=== PATIENT | female | born 1975 | race Two or more races ===

== ENCOUNTER 2016-07-24 12:46 | Emergency (ER) | payer OTHER ==
--- NOTE | 2016-07-24 14:26 | UCPHY ---
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 She is able to bear weight albeit with pain. 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 No paresthesia. No discoloration beyond localized ecchymosis. No history of thromboembolic disorder. PHYSICAL EXAM (Prior to examination, patient consented to physical exam, hands were washed and my usual and customary physical exam procedures followed) 1) GENERAL: Well-developed, well-nourished, alert and oriented. Appears to be in no acute distress. 2) HEAD: Normocephalic 3) HEENT: Pupils equal, round, reactive to light bilaterally. 4) LUNGS: Breathing comfortably. 5) MUSCULOSKELETAL: Tender to palpation with ecchymotic discoloration distal right pretibial region. Compartments are soft. proximal tibia and fibula nontender .5th MT nontender negative Hernandez test, compartments soft. Dorsiflexion plantar flexion distally do not elicit pain proximally. 6) SKIN: intact. Ecchymotic discoloration 7) VASCULAR: DP,PT pulses and cap refill present and brisk DIFFERENTIAL DIAGNOSIS: in no particular order including but not limited to fracture, sprain, compartment syndrome Xray of the right ankle interpreted by myself: no definitive acute osseous abnormality Procedure: Splint A Wynne boot splint was applied by ER machine maintenance technician. After application of the splint I returned and re-examined the patient. The splint was adequately immobilizing the joint and distal to the splint the patient's circulation and sensation were intact. Patient shows no signs of compartment syndrome. Was given orthopedic precautions. (Brad Arredondo) Constitutional: Initial Vital Signs Temperature (C) 36.9 C 07/24/16 14:22 Heart Rate 64 07/24/16 14:22 Respiratory Rate 18 07/24/16 14:22 Blood Pressure 133/82 H 07/24/16 14:22 O2 Sat (%) 100 07/24/16 14:22 O2 Delivery Mode Room Air Allergies/Adverse Reactions: No Known Allergies Allergy (Unverified 07/24/16 14:20) Home Medications: Medication Instructions Recorded NK [No Known Home Meds] 07/24/16 MDM/Departure - [facility] ED Course/Re-evaluation: doubt compartment syndrome as the patient has soft compartments, no pain with passive or active range of motion distally, no paresthesia, no discoloration, she is neurovascular intact distally. No definitive acute osseous abnormality. Discussed possibility of occult fracture. She has been splinted and given orthopedic follow-up information. Usual and customary orthopedic precautions and instructions provided (Brad Arredondo) Urgent Care PA supervision Physician documentation: The patient was evaluated and managed by the physician marketing assistant. My co- signature indicates that I have reviewed this chart and I agree with the findings and plan of care as documented. I am is secondary supervising physician. (Carlin Hernandez) - Depart Disposition: Home, Routine, Self-Care Clinical Impression: Contusion of right ankle Qualifiers: Encounter type: initial encounter Qualifier Code: (S90.01XA) Contusion of right ankle, initial encounter Condition: Good Instructions: Foot Contusion (ED) Additional Instructions: Return to the ER immediately if you experience discoloration, have worsening pain, numbness, tingling, or any other symptoms that concern you. If you received x-rays in the emergency department today, be advised, that ligamentous , tendon, muscular, and other non-bony injury cannot be fully ruled out. Try to keep your affected extremity elevated above the level of your chest, and keep cold packs on the affected area, for the next 48 hours. Referrals: Carlin Banda MD [Medical Doctor] - 5-7 days, call for appt. - PQRS PQRS Measurement: Not applicable (Brad Arredondo)
[2016-07-24 14:27] VITALS: BP 133/82; PULSE 64; RESP 18; TEMP 98.4; O2SAT 100
--- NOTE | 2016-07-24 15:06 | DX ---
Right Ankle Series, Three Views July 24, 2016 1440 hours History: Pain following trauma. Findings: Osseous structures are intact without fracture. The ankle mortise has a normal contour. Sof t tissues are unremarkable. Impression: Normal right ankle series.
--- NOTE | 2016-07-24 15:11 | DX ---
Right Toes, Three Views History: Trauma, pain, second and third toe pain. Findings: No acute fracture or dislocation identified. Right toes demonstrate no definite fracture or dislocation. Impression: No definite fracture of the right toes.
== END 2016-07-24 15:29 | disposition home or self-care (01) ==
LOC: CED 12:46
DX: S90.01XA Contusion of right ankle, initial encounter (principal); Y93.49 Activity, other involving dancing and other rhythmic movements; X50.9XXA Other and unspecified overexertion or strenuous movements or postures, initial encounter
CPT/HCPCS: 73610-PO; 73660-PO; 99214-PO; G0463-PO; L4386

== ENCOUNTER → 2019-01-03 | Outpatient (CLI) | payer OTHER | LOC: GIMAGING 15:05 ==